=== PATIENT | female | born 1995 | race Caucasian/White ===

== ENCOUNTER 2017-04-27 18:15 | Emergency (ER) | payer OTHER ==
[2017-04-27 18:24] VITALS: BP 140/100; TEMP 97.6; BMI 38.9
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
== END 2017-04-27 19:30 | disposition home or self-care (01) ==
LOC: ED 18:15
DX: S59.911A Unspecified injury of right forearm, initial encounter (principal); R03.0 Elevated blood-pressure reading, without diagnosis of hypertension; V89.2XXA Person injured in unspecified motor-vehicle accident, traffic, initial encounter
CPT/HCPCS: 99282